=== PATIENT | female | born 1950 | race Caucasian/White ===

== ENCOUNTER 2018-05-28 01:45 | Inpatient (IN) | payer OTHER ==
[~2018-05-28] VITALS: Ht 172.7 cm; Wt 74.4 kg
[2018-05-28 01:53] VITALS: BP 122/90
[2018-05-28] MEDS ORDERED: COZAAR 25 MG TA25 M1 PO (02:01)
[2018-05-28] MEDS ORDERED: SYNTHROID25 MC1 PO (02:01)
[2018-05-28] MEDS ORDERED: CARVEDILOL12.5 MG PO (02:01)
[2018-05-28 02:06] LABS: ABSOLUTE BASOPHILS 0.1 thou/uL (0.0-0.2); ABSOLUTE LYMPHOCYTES 2.4 thou/uL (0.8-5.3); ABSOLUTE MONOCYTES 0.6 thou/uL (0.0-1.2); ABSOLUTE NEUTROPHILS 6.5 thou/uL (1.6-8.1); BASOPHILS 0.8 %; EOSINOPHILS 0.3 %; HEMATOCRIT 43.3 % (37.0-47.0); HEMOGLOBIN 14.7 gm/dL (12.0-15.0); LYMPHOCYTES 24.7 %; MCH 30.9 pg (26.0-34.0); MCV 90.8 fL (80.0-100.0); MPV 8.6 fl. (7.2-11.1); NUCLEATED RBCS 0 /100WBC; PLATELET COUNT* 231 thou/uL (150-400); POLYS 68.2 %; RBC 4.77 mil/uL (4.20-5.00); WBC 9.5 thou/uL (4.0-11.0)
[2018-05-28 02:21] LABS: ANION GAP 10 mmol/L (7-16); BUN 24 mg/dL (7-18); CALCIUM 8.4 mg/dL (8.5-10.1); CHLORIDE 103 mmol/L (98-107); CO2 25 mmol/L (21-32); GLUCOSE 156 mg/dL (70-99); POTASSIUM 3.9 mmol/L (3.5-5.1); SODIUM 138 mmol/L (136-145)
[2018-05-28 02:31] LABS: PROTIME 9.9 Seconds (9.20-11.50)
[2018-05-28 02:32] LABS: ALBUMIN 3.6 g/dL (3.4-5.0); ALKALINE PHOSPHATASE 92 U/L (46-116); NT-PRO BRAIN NAT PEPTIDE 199 pg/mL (<300); SGOT 18 U/L (15-37); SGPT 28 U/L (30-65); TOTAL BILIRUBIN 0.3 mg/dL (<0.1-1.0); TROPONIN-I LEVEL <0.06 ng/mL (<0.06)
[2018-05-28 03:25] VITALS: BP 91/67
--- NOTE | 2018-05-28 06:28 | NUR ---
PT TO FLOOR APROX 0300. PT ON CARTIZEM DRIP AT 10ML/H FOR AFIB. SEE MAR. SEE CHARTING. HOURLY ROUNDING FOR SAFETY.
[2018-05-28 08:00] VITALS: BP 103/76
--- NOTE | 2018-05-28 08:00 | NUR ---
ASSUMED PT. CARE AND RECIEVED REPORT AT 0730. PT A/OX4, BP COMING UP TO 103/76, MONITOR ON TRACING AFIB 126. PT. DENIES CURRENT PAIN/SOB. STATES SHE JUST FEELS OFF FROM BEING UP ALL NIGHT. FULL ASSESSMENT COMPLETED, REFER TO CHARTING. AMIO GTT STARTED PER ORDERS, PT. EDUCATED. FAMILY AT BEDSIDE. NPO FOR CV CONSULT. CALL LIGHT IN REACH, WILL CONTINUE WITH PLAN OF CARE.
--- NOTE | 2018-05-28 09:11 | NUR ---
@ APPROX. 0832 PT. ANUJ DOWN TO 40'S AND THEN CONVERTED SELF TO SR.
[2018-05-28 11:16] VITALS: BP 114/69
[2018-05-28 11:54] LABS: URINE BILIRUBIN NEGATIVE (Negative); URINE BLOOD TRACE (Negative); URINE CLARITY CLEAR; URINE COLOR YELLOW; URINE GLUCOSE-RANDOM NEGATIVE (Negative); URINE KETONES NEGATIVE (Negative); URINE LEUKOCYTES-REFLEX 1+ (Negative); URINE NITRITE-REFLEX NEGATIVE (Negative); URINE PROTEIN NEGATIVE (Negative); URINE UROBILINOGEN 0.2 E.U./dl (0.2-1.0)
[2018-05-28 12:02] LABS: BACTERIA-REFLEX None Seen /HPF (None Seen); CASTS None Seen /LPF (None Seen); CRYSTALS None Seen /LPF (None Seen); URINE RBC 0-2 Rare /HPF (0-2); URINE WBC-REFLEX 0-5 Rare /HPF (0-5)
[2018-05-28 12:03] LABS: SQUAMOUS 0-3 Few /LPF (0-3)
[2018-05-28 12:44] LABS: AMP/METHAMP Negative (Negative); BARBITURATES Negative (Negative); BENZODIAZEPINES Negative (Negative); COCAINE Negative (Negative); METHADONE Negative (Negative); OPIATES Negative (Negative); PCP Negative (Negative); THC Negative (Negative)
--- NOTE | 2018-05-28 13:36 | 2DMMODE ---
[place] [address] 2 D/M-MODE ECHOCARDIOGRAM Name: JOSE KMI Room: [place] [address] ADM IN [facility]#: [id number] Admission: 05/28/18 Attend Phys: Italia Easton MD Discharge: Date of : 50 Date of Service: 05/28/18 1335 Report #: [id number] THIS REPORT FOR: //name// APPROVED REPORT Study performed: 05/28/2018 09:33:28 EXAM: Comprehensive 2D, Doppler, and color-flow Echocardiogram Patient Location: In-Patient Room #: [facility] Status: routine BSA: 1.88 HR: 64 bpm BP: 103/76 mmHg Rhythm: NSR Other Information Study Quality: Good Indications Atrial Fibrillation Palpitations 2D Dimensions IVSd: 16.33 (7-11mm) LVOT Diam: 20.47 (18-24mm) LVDd: 38.07 mm PWd: 10.79 (7-11mm) Ascending Ao: 40.90 (22-36mm) LVDs: 23.52 (25-40mm) Aortic Root: 33.72 mm Volumes Left Atrial Volume (Systole) LA ESV Index: 25.70 mL/m2 Aortic Valve AoV Peak Yoan.: 1.45 m/s AO Peak Gr.: 8.46 mmHg LVOT Max P.27 mmHg AO Mean Gr.: 4.27 mmHg LVOT Mean P.72 mmHg LVOT Max V: 1.25 m/s AO V2 VTI: 28.96 cm LVOT Mean V: 0.74 m/s MONTEZ (VTI): 3.21 cm2 LVOT V1 VTI: 28.21 cm Mitral Valve E/A Ratio: 0.92 MV Decel. Time: 183.46 [place] [address] 2 D/M-MODE ECHOCARDIOGRAM Name: JOSE KIM Room: [address] IN ..#: [id number] Admission: 05/28/18 Attend Phys: Italia Easton MD Discharge: Date of : 50 Date of Service: 05/28/18 1335 Report #: [id number] MV E Max Yoan.: 0.86 m/s MV PHT: 53.20 ms MVA (PHT): 4.13 cm2 TDI E/Lateral E': 7.82 E/Medial E': 9.56 Medial E' Yoan.: 0.09 m/s Lateral E' Yoan.: 0.11 m/s Pulmonary Valve PV Peak Yoan.: 0.79 m/s PV Peak Gr.: 2.51 mmHg Left Ventricle The left ventricle is normal size. There is normal LV segmental wall motion. Mild to moderate concentric left ventricular hypertrophy. Left ventricular systolic function is normal. LVEF is 55-60%. The left ventricular diastolic function is normal. Right Ventricle The right ventricle is normal size. The right ventricular systolic function is normal. Atria The left atrium size is normal. The right atrium size is normal. Aortic Valve The aortic valve is normal in structure. Trace aortic regurgitation. There is no aortic valvular stenosis. Mitral Valve The mitral valve is normal in structure. Trace mitral regurgitation. No evidence of mitral valve stenosis. Tricuspid Valve The tricuspid valve is normal in structure. Unable to assess PA pressure. Trace tricuspid regurgitation. Pulmonic Valve The pulmonary valve is normal in structure. Trace pulmonic regurgitation. Great Vessels Aortic root is mildly dilated. (4.0 cm) IVC [place] [address] 2 D/M-MODE ECHOCARDIOGRAM Name: JOSE KIM Room: [address] IN [facility]#: [id number] Admission: 05/28/18 Attend Phys: Italia Easton MD Discharge: Date of : 50 Date of Service: 05/28/18 1335 Report #: [id number] Pericardium There is no pericardial effusion. <Conclusion> The left ventricle is normal size. Mild to moderate concentric left ventricular hypertrophy. Left ventricular systolic function is normal. LVEF is 55-60%. The left ventricular diastolic function is normal. Trace aortic regurgitation. Trace mitral regurgitation. Trace tricuspid regurgitation. Trace pulmonic regurgitation. Aortic root is mildly dilated. (4.0 cm) <ELECTRONICALLY SIGNED> By: Lawrence Meyer MD, FACC 05/28/185 34 34 Lawrence Meyer MD, FACC /INF
--- NOTE | 2018-05-28 13:43 | EKG ---
[place] [address] ELECTROCARDIOGRAM REPORT Name: JOSE KIM Room: [place] [address] ADM IN .R.#: [id number] Admission: 05/28/18 Attend Phys: Italia Easton MD Discharge: Date of : 50 Report #: [id number] THIS REPORT FOR: //name// [facility] ED Test Date: 2018-05-28 Test Time: 01:53:18 Pat Name: JOSE KIM Department: Room: [facility] Gender: F Commercial Lending Assistant: : 1950 Requested By: Jannie Parisi Order Number: [id number] MD: Lawrence Meyer Measurements Intervals [place] Rate: 153 P: [place]: QRS: 39 QRSD: 79 T: 17 QT: 307 QTc: 490 Interpretive Statements Atrial fibrillation with rapid V-rate ST depression, probably rate related No previous ECG available for comparison Electronically Signed On 05-28-2018 13:43:24 FULL DECATOR OPERATOR by Lawrence Meyer [email or web address] <ELECTRONICALLY SIGNED> By: Lawrence Meyer MD, [facility] 05/28/18 1343 0153 015 Lawrence Meyer MD, FACC /EPI
--- NOTE | 2018-05-28 13:54 | CON ---
[address] [address] CONSULTATION Name: JOSE KIM Room: [place] [address] ADM IN .R.#: [id number] Admission: 05/28/18 Attend Phys: Italia Easton MD Discharge: Date of : 50 Report #: [id number] THIS REPORT FOR: //name// CC: DR RADHA Pastor DATE OF SERVICE: 05/28/2018 HISTORY OF PRESENT ILLNESS: The patient is a 68-year-old white female who I was asked to see in the hospital today after she was noted to be in atrial fibrillation. The patient notes about 4 years ago, she was diagnosed with hypertension. She is placed on lisinopril. She then had a couple of syncopal spells. She was admitted overnight to [facility]. She underwent an extensive evaluation including echocardiogram, carotid Doppler, stress test. She apparently was found to be orthostatic. She was taken off lisinopril. She wore a monitor for a couple of weeks. She has had no further syncope. She eventually was placed on carvedilol, losartan for hypertension. She stays fairly active bowling. She denies any significant chest pain or shortness of breath. She was doing well until recently she developed a rash. She is placed on a steroid Dosepak. She went to bed last night, then awakened about 1 in the morning with her heart beating fast and irregular. She was brought by her to the Emergency Room at about 1:00 a.m. She was found to be in atrial fibrillation. She was started on IV Cardizem. However, she developed low blood pressure and heart rate remained elevated. This morning, she was switched to IV amiodarone. She then converted to sinus rhythm. I was asked to see her for further evaluation and treatment. She denies any recent fever. She has had no bleeding problems. Denies any leg pain. PAST MEDICAL HISTORY: Significant for knee replacement, laparotomy for endometriosis, hypertension, hyperlipidemia. MEDICATIONS: Include Lipitor, carvedilol, losartan, aspirin. ALLERGIES: She has no known drug allergies. FAMILY HISTORY: Negative for heart disease. SOCIAL HISTORY: She is . She and her live in [place]. She is a retired nurse, used to work at [employer], also worked as a home health nurse. No smoking or alcohol abuse. REVIEW OF SYSTEMS: She has had no history of stroke, asthma, peptic ulcer disease, liver disease, kidney disease, cancer, psychiatric illness, chronic skin condition. [place] [address] CONSULTATION Name: JOSE KIM ADRIÁN Room: [address] IN [facility]#: [id number] Admission: 05/28/18 Attend Phys: Italia Easton MD Discharge: Date of : 50 Report #: [id number] PHYSICAL EXAMINATION: GENERAL: Revealed a middle-aged female, lying in bed. She appears in no distress. VITAL SIGNS: She has a blood pressure of 100/70, pulse is now 80 and she is afebrile. HEENT: She is anicteric, conjunctiva pink. Mucous membranes appear moist. NECK: Veins do not appear distended. No carotid bruits. Neck supple. CHEST: Clear to auscultation. CARDIOVASCULAR: Regular rate and rhythm. ABDOMEN: Soft, nontender. EXTREMITIES: Had no edema. Posterior pulse 2+ bilaterally. SKIN: Warm, dry. NEUROLOGIC: Nonfocal. Her ECG on admission showed atrial fibrillation with rapid ventricular response rate. Currently, she appears to be in a sinus rhythm. Workup last night, she had a portable chest x-ray that showed normal heart size and clear lung valenzuela. LABORATORY DATA: Sodium 138, creatinine 1.0, glucose 156. Her liver function studies were normal. Troponin 0.06. TSH 5.15. White blood cell count 9.5, hemoglobin 14.7. IMPRESSION AND RECOMMENDATIONS: 1. Atrial fibrillation. I would recommend starting antiarrhythmic therapy. I would recommend starting flecainide. 2. Hypertension. The patient is on a beta arthur and ARB. 3. Hyperlipidemia. The patient is on a statin drug. 4. Recent rash, treated with steroids. 5. Previous episode of syncope while taking lisinopril. <ELECTRONICALLY SIGNED> By: Darrell Ovalles MD, [facility] 05/28/18 1354 0908 [id number] Ovalles MD, FACC /nt
[2018-05-28 15:35] VITALS: BP 114/63
--- NOTE | 2018-05-28 15:46 | NUR ---
PT.ALERT AND ORIENTED. LIVES WITH HER SHE USES NO DME. IS INDEPENDENT. NO HX OF HH. GOAL IS TO GO HOME AT DISCHARGE.
--- NOTE | 2018-05-28 19:09 | NUR ---
PT. STABLE REMAINDER OF SHIFT. CONTINUES TO MAINTAIN SR. NO COMPLAINTS OF CP. BP IS TOLERATING MEDICATIONS WELL. ANTICPATE DC TOMORROW LONG REMAINS STABLE. PT. IN GOOD SPIRITS AND ABLE TO COMMUNICATE NEEDS/FEELINGS TO STAFF WELL. HOURLY ROUNDING COMPLETED THROUGH OUT THE DAY FOR PT. SAFETY.
[2018-05-28 20:40] VITALS: BP 121/67
[2018-05-29] VITALS: BP 116/64
[2018-05-29 04:00] VITALS: BP 140/84
--- NOTE | 2018-05-29 05:13 | NUR ---
PT CARE ASSUMED AT 1930. SAT MAINTAINED IN RA. ALERT AND ORIENTED X4. CALL LIGHT WITHIN REACH AND BED IN LOW POSITIOIN. DENIES SOB AND CHEST PAIN. PT IS UP AD TAD. HOURLY ROUNDING DONE FOR PT SAFETY.
[2018-05-29 08:30] VITALS: BP 172/98
[2018-05-29] MEDS ORDERED: ELIQUIS5 MG PO (10:40)
[2018-05-29] MEDS ORDERED: FLECAINIDE ACET50 M1 PO (10:40)
[2018-05-29] MEDS ORDERED: LIPITOR 20 MG T20 M1 PO (10:42)
[2018-05-29 11:52] VITALS: BP 172/98
--- NOTE | 2018-05-29 12:23 | NUR ---
PATIENT DISCHARGED FROM UNIT AT 1220. ALERT AND ORIENTED X 4. VITAL SIGNS STABLE ON ROOM AIR. SINUS RHYTHM ON MONITOR. IV DISCONTINUED. DENIES PAIN AND NAUSEA. DISCHARGE INSTRUCTIONS, MEDICATION INFORMATION, AND SCRIPTS GIVEN TO PATIENT. LEFT WITH ALL BELONGINGS. PATIENT LEFT WITH SPOUSE VIA CAR.
[2018-05-29 12:52] VITALS: BP 172/98
== END 2018-05-29 12:20 | disposition home or self-care (01) | DRG 310 ==
LOC: M.ERS 01:45 → M.TBA-ER 02:46 → M.2W 02:46
PROVIDERS: Emergency Medicine; ADMIT Family Medicine
DX: I48.91 Unspecified atrial fibrillation (principal); I10 Essential (primary) hypertension; E78.5 Hyperlipidemia, unspecified; E03.9 Hypothyroidism, unspecified; Z96.651 Presence of right artificial knee joint; Z88.8 Allergy status to other drugs, medicaments and biological substances; Z79.899 Other long term (current) drug therapy